=== PATIENT | male | born 1960 | race Caucasian/White ===

== ENCOUNTER → 2021-09-16 10:11 | Outpatient (CLI) | payer MEDICARE, SELFPAY ==
--- NOTE | 2021-09-16 10:21 | XR_ITS ---
FINAL REPORT CLINICAL HISTORY: PAIN, WOUND FINDINGS: RIGHT FOOT Three views demonstrate no acute fracture or dislocation. There are moderate to severe degenerative changes of the first metatarsophalangeal joint. No soft tissue abnormality is seen. IMPRESSION: Degenerative changes as above. Reviewed, Interpreted and Dictated by Trenton Arias III, MD Transcribed by Valerie Saldana Authenticated by Trenton Arias III, MD on 09/16/2021 11:11:19 AM [facility]
--- NOTE | 2021-09-16 10:21 | XR_ITS ---
FINAL REPORT CLINICAL HISTORY: PAIN, WOUND FINDINGS: LEFT FOOT Three views demonstrate no acute fracture or dislocation. The joint spaces appear normal. The visualized bony structures are well aligned. No soft tissue abnormality is seen. IMPRESSION: No acute process. Reviewed, Interpreted and Dictated by Trenton Arias III, MD Transcribed by Valerie Saldana Authenticated by Trenton Arias III, MD on 09/16/2021 11:11:23 AM [facility]
== END ==
PROVIDERS: PCP Nurse Practitioner Family; Visit Provider Nurse Practitioner Family
DX: M79.672 Pain in left foot (principal); M79.671 Pain in right foot
CPT/HCPCS: 73630

== ENCOUNTER 2022-01-24 14:12 | Emergency (ER) | payer MEDICARE, SELFPAY ==
[2022-01-24 14:36] VITALS: BP 101/72; PULSE 72; RESP 18; TEMP 38.1; O2SAT 98; BMI 17.3
[2022-01-24 14:50] LABS: UTC Strep Screen (Rapid) Negative (Negative)
--- NOTE | 2022-01-24 15:06 | HMH.EDUTC ---
[facility] [place] Clinical Impression: Viral syndrome, COPD exacerbation Disposition: Home, Self-Care Condition on Discharge: Good Instructions: Chronic Obstructive Pulmonary Disease, DI for Chronic Obstructive Pulmonary Disease, DI for COVID-19 (Suspected or Confirmed ), Preventing the Spread of Coronavirus Discharge Instructions Additional Instructions: Drink plenty of fluids. Take tylenol or ibuprofen for pain or fever. Take the medications as directed. Follow up with your regular doctor. GO TO THE ER FOR ANY WORSENING SYMPTOMS Quarantine until you know the results of your covid-19 test. Notify your school or workplace of your results and follow their instructions regarding return to work/school. Prescriptions: Benzonatate [Benzonatate 100mg cap] 100 mg PO TIDP PRN #30 cap PRN Reason: Cough Transmission Status: Received by [facility] methylPREDNISolone [Medrol] 4 mg PO DIRECTED 6 Days #21 packet Transmission Status: Received by [facility] Azithromycin [Z-Bakari 250mg Tab*] 250 mg PO UD DOSE PK #6 tab Transmission Status: Received by [facility] Referrals: Penny Hernandez APRN [Primary Care Provider] - Time of Disposition: 15:24 Medical Decision Making - Medical Records Medical records reviewed: No: I reviewed the patient's medical records. - [place] Inquiry Pt receiving controlled substance: No Vital Signs: 01/24/22 14:36 01/24/22 15:40 Temperature 100.6 F H 100.6 F H Temperature Source Oral Pulse Rate 72 Pulse Rate [Right Radial] 72 Respiratory Rate 18 18 Blood Pressure 101/72 L Blood Pressure [Right Arm] 101/72 L Blood Pressure Mean [Right Arm] 81 Blood Pressure Source [Right Arm] Automatic Cuff Blood Pressure Position [Right Arm] Sitting 02 Sat by Pulse Oximetry 98 Oxygen Delivery Method Room Air - Lab Data Lab Results 01/24/22 14:36: Strep Scn Rapid Clinic Negative Orders (Tests/Meds): ORDERS Category Date Time Status Strep Screen Confirmation Stat Micro 01/24/22 14:36 [place] [facility] [place] - General Stated complaint: Sore throat, fever, chills Time Seen by Provider: 01/24/22 15:13 Mode of Arrival: Ambulatory Source of Information: Patient Limitations: No Limitations Description of Symptoms (Recalled from Triage Doc. by RN): Pt reports fever, chills, cough and diarrhea. Pt states symtoms began last . HEENT Symptoms (Recalled from RN notes): No Resp Symptoms (Recalled from RN notes): Yes (reports cough) Skin Symptoms (Recalled from RN notes): No MS Symptoms (Recalled from RN notes): No Functional Status (Recalled from RN notes): n/a - History of Present Illness Provider Complaint: He state that he has had a cough and felt bad for the past 2 days. He has a history of copd. - Related Data Home Medications Medication Instructions Recorded Confirmed albuterol sulfate 90 mcg/actuation g INHALATION 09/16/21 09/22/21 aerosol inhaler bupropion HCl 150 mg tablet,12 hr tab PO 09/16/21 09/22/21 sustained-release montelukast 10 mg tablet 10 mg PO tab 09/16/21 09/22/21 nicotine (polacrilex) 2 mg buccal 2 mg PO each 09/16/21 09/22/21 mini lozenge omeprazole 40 mg capsule,delayed 40 mg PO cap 09/16/21 09/22/21 release umeclidinium 62.5 mcg-vilanterol blister INHALATION 09/16/21 09/22/21 25 mcg/actuation powdr for inhalation Previous Rx's Medication Instructions Recorded diclofenac sodium 1 % topical gel 4 g TOPICAL QID #100 g 09/22/21 Azithromycin [Z-Bakari 250mg Tab*] 250 mg PO UD DOSE PK #6 tab 01/24/22 Benzonatate [Benzonatate 100mg 100 mg PO TIDP PRN #30 cap 01/24/22 cap] methylPREDNISolone [Medrol] 4 mg PO DIRECTED 6 Days #21 01/24/22 packet Allergies Allergy/AdvReac Type Severity Reaction Status Date / Time No Known Allergies Allergy Verified 09/22/21 13:34 - Worker's Comp Is this a Worker's Comp case?: No [facility] History - Hepatitis A Screen At
[2022-01-24 15:40] VITALS: BP 101/72; PULSE 72; RESP 18; TEMP 38.1
== END 2022-01-24 15:40 | disposition home or self-care (01) ==
PROVIDERS: Emergency Provider Nurse Practitioner Family; PCP Nurse Practitioner Family
DX: U07.1 COVID-19 (principal); J02.9 Acute pharyngitis, unspecified; R19.7 Diarrhea, unspecified; K21.9 Gastro-esophageal reflux disease without esophagitis; F17.210 Nicotine dependence, cigarettes, uncomplicated; J44.9 Chronic obstructive pulmonary disease, unspecified; Z79.51 Long term (current) use of inhaled steroids; Z79.52 Long term (current) use of systemic steroids; Z82.49 Family history of ischemic heart disease and other diseases of the circulatory system; Z80.9 Family history of malignant neoplasm, unspecified
CPT/HCPCS: 87880; 99213; C9803; G0463; U0003; U0005

== ENCOUNTER 2023-08-16 16:33 | Outpatient (CLI) | payer MEDICARE, SELFPAY ==
--- NOTE | 2023-08-16 16:46 | XR_ITS ---
PROCEDURE INFORMATION: Exam: XR Chest Exam date and time: 08/16/2023 4:49 PM Age: 63 years old Clinical indication: Shortness of breath TECHNIQUE: Imaging protocol: Radiologic exam of the chest. Views: 2 views. COMPARISON: No relevant prior studies available. FINDINGS: Lungs: Hyperinflated lungs suggesting COPD. Left midlung calcified granuloma. No acute consolidation. Pleural spaces: Normal No pleural effusion. No pneumothorax. Heart/Mediastinum: Normal. No cardiomegaly. Vasculature: Mild atherosclerotic plaque in the aortic arch. Bones/joints: Osteopenia. Mild thoracic spine degenerative disc disease. IMPRESSION: COPD. No acute findings.
[2023-08-16 17:24] LABS: Basophils % 0.1 % (0.1-2.0); Hematocrit 45.3 % (42.0-52.0); Hemoglobin 15.2 g/dL (14.1-18.0); Lymphocytes # 0.6 K/mm3 (0.7-4.5); Lymphocytes % 4.5 % (10-50); Mean Corpuscular HGB Conc 33.7 g/dL (31.8-35.4); Mean Corpuscular Hemoglobin 32.8 pg (27.0-31.2); Mean Corpuscular Volume 97.5 fl (80-94); Monocytes # 0.4 K/mm3 (0.1-1.0); Monocytes % 3.1 % (1.7-9.3); Neutrophils # 12.4 K/mm3 (1.8-7.8); Neutrophils % 92.3 % (37.0-80.0); Platelet Count 114 K/mm3 (142-424); Red Blood Count 4.64 M/mm3 (4.60-6.20); Red Cell Distribution Width 14.1 % (11.5-17.5); White Blood Count 13.4 K/mm3 (4.8-10.8)
[2023-08-16 17:35] LABS: Blood Urea Nitrogen 11 mg/dl (9-20); Calcium 8.7 mg/dl (8.4-10.2); Carbon Dioxide 24 mmol/L (22.0-30.0); Chloride 100 mmol/L (98-107); Estimated Glomerular Filt Rate 114 ml/min (>60); GFR (African American) 138 ML/MIN (>60); Glucose 175 mg/dl (74-100); Sodium 133 mmol/L (136-145)
[2023-08-16 17:36] LABS: MANUAL DIFFERENTIAL MANUAL DIFFERENTIAL (MANUAL DIFF)
[2023-08-16 18:05] LABS: Anisocytosis 1+; Lymphocytes % 3 % (10-50); Macrocytosis 1+; Monocytes % 3 % (2-9); Neutrophils % 64 % (42-76); Platelet Estimate Slight Decrease; Total Cells Counted 100
== END 2023-08-16 23:59 ==
LOC: LAB 16:34
PROVIDERS: PCP Family Medicine; Visit Provider Family Medicine
DX: J44.1 Chronic obstructive pulmonary disease with (acute) exacerbation (principal); R06.02 Shortness of breath; Z79.899 Other long term (current) drug therapy; R79.89 Other specified abnormal findings of blood chemistry
CPT/HCPCS: 36415; 71046; 80048; 85007; 85025

== ENCOUNTER 2023-08-17 07:22 | Outpatient (CLI) | payer SELFPAY ==
[2023-08-17 13:09] LABS: Hemoglobin A1C 5.5 % (4.0-6.0)
== END 2023-08-17 23:59 ==
PROVIDERS: PCP Family Medicine; Visit Provider Family Medicine
DX: R73.9 Hyperglycemia, unspecified (principal)
CPT/HCPCS: 83036